=== PATIENT | female | born 1965 ===

== ENCOUNTER 2018-02-12 07:25 | Observation (INO) | payer BC ==
[2018-02-12 07:28] VITALS: BMI 27.0
[2018-02-12 08:18] LABS: BASO # 0.1 K/uL (0.0-0.2); BASO % 1.3 % (0.0-2.0); EOS # 0.1 K/uL (0.0-0.7); EOS % 0.9 % (0.0-4.0); HEMOGLOBIN 13.6 g/dL (12.0-16.0); LYMPH # 1.8 K/uL (1.0-4.3); MEAN CORPUSCULAR HGB CONC 33.7 g/dL (33.0-37.0); MEAN PLATELET VOLUME 8.6 fl (7.2-11.7); MONO # 0.6 K/uL (0.0-0.8); MONO % 6.2 % (0.0-10.0); NEUT # 7.7 K/uL (1.8-7.0); NEUT % 74.6 % (50.0-75.0); NRBC % 0.1 % (0.0-0.0); RBC 4.52 Mil/uL (3.80-5.20); RED CELL DISTRIBUTION WIDTH 13.5 % (11.5-14.5); WHITE BLOOD COUNT 10.4 K/uL (4.8-10.8)
--- NOTE | 2018-02-12 08:19 | ED PDOC ---
Syncope/Near Syncope/Dizziness Time Seen by Provider: 02/12/18 07:55 Chief Complaint (Nursing): Dizziness/Lightheaded Chief Complaint (Provider): Dizziness/Lightheaded History Per: Patient History/Exam Limitations: no limitations Onset/Duration Of Symptoms: Other (prior to arrival) Additional Complaint(s): 52 years old female presents to the ED for evaluation of syncopal episode that lasted approximately 2 minutes witnessed by family prior to arrival. Patient reports she was taking shower, fell and hit back of neck and head. She complains of right sided neck pain. She denies chest pain, weakness, paraesthesia or palpitations. No seizure signs or collection of event. PMD: non provided Past Medical History Reviewed: Historical Data, Nursing Documentation, Vital Signs Vital Signs: Last Vital Signs Temp 98.2 F 02/12/18 07:28 Pulse 49 L 02/12/18 07:28 Resp 18 02/12/18 07:28 BP 127/73 02/12/18 07:28 Pulse Ox 100 02/12/18 07:28 - Medical History PMH: No Chronic Diseases - Surgical History Surgical History: No Surg Hx - Family History Family History: States: Unknown Family Hx - Social History Current smoker - smoking cessation education provided: No Alcohol: None Drugs: Denies - Allergies Allergies/Adverse Reactions: Allergies Allergy/AdvReac Type Severity Reaction Status Date / Time No Known Allergies Allergy Verified 02/12/18 07:34 Review of Systems ROS Statement: Except As Marked, All Systems Reviewed And Found Negative Cardiovascular: Negative for: Chest Pain, Palpitations Musculoskeletal: Positive for: Neck Pain (right sided) Neurological: Positive for: Other (paraesthesia). Negative for: Weakness, Seizures Physical Exam - Reviewed Nursing Documentation Reviewed: Yes Vital Signs Reviewed: Yes - Physical Exam Appears: Positive for: Non-toxic, No Acute Distress Head Exam: Positive for: ATRAUMATIC, NORMOCEPHALIC Eye Exam: Positive for: Normal appearance, EOMI, PERRL Neck: Positive for: Supple. Negative for: Normal (Positive for right paracervical tenderness.) Cardiovascular/Chest: Positive for: Regular Rate, Rhythm. Negative for: Murmur Respiratory: Positive for: Normal Breath Sounds. Negative for: Respiratory Distress Gastrointestinal/Abdominal: Positive for: Normal Exam, Soft. Negative for: Tenderness Back: Positive for: Normal Inspection. Negative for: Other (No midline spinal tenderness or deformity) Extremity: Positive for: Normal ROM. Negative for: Tenderness, Swelling Neurologic/Psych: Positive for: Alert, Oriented (x3). Negative for: Motor/ Sensory Deficits - Laboratory Results Result Diagrams: 02/12/18 08:05 02/12/18 08:05 - ECG O2 Sat by Pulse Oximetry: 100 (RA) Pulse Ox Interpretation: Normal Medical Decision Making Medical Decision Making: Time: 800 Initial Plan: --Ct Cervical Spine W/O Contrast --Ct Head W/O Contrast --CMP --Urine dipstick --CBC --EKG [address] FINDINGS: Vertebrae: Hypertrophic changes are present involving the dens and anterior arch of C1. Discs/Spinal canal/Neural foramina: No spinal stenosis. No neural foraminal narrowing. Soft tissues: Unremarkable. Lung apices: Normal. IMPRESSION: No evidence of cervical spine fracture. Remainder of findings as described above. Dictated By: Anna Chandra MD, MD Dictated Date/Time: 02/12/18849 Signed By: Anna Chandra MD Date Signed: 849 Transcribed By: LOS Transcribe Date/Time : 02/12/18849 SHAFJ/NARENDRA [address] FINDINGS: HEMORRHAGE: No intracranial hemorrhage. BRAIN: No mass effect or edema. No atrophy or chronic microvascular ischemic changes. VENTRICLES: Unremarkable. No hydrocephalus. CALVARIUM: Unremarkable. PARANASAL SINUSES: Unremarkable as visualized. No significant inflammatory changes. MASTOID AIR CELLS: Unremarkable as visualized. No inflammatory changes. OTHER FINDINGS: None. IMPRESSION: Normal CT of the Head. Scribe Attestation: Documented by Ambika Castellanos, acting as a scribe for Saen Díaz MD. Provider Scribe Attestation: All medical record entries made by the Scribe were at my direction and personally dictated by me. I have reviewed the chart and agree that the record accurately reflects my personal performance of the history, physical exam, medical decision making, and the department course for this patient. I have also personally directed, reviewed, and agree with the discharge instructions and disposition. Disposition - Clinical Impression Clinical Impression: Syncope, Bradycardia - Patient ED Disposition Is Patient to be Admitted: Yes - Disposition Disposition Time: 09:40 Condition: FAIR Forms: [employer] [facility] (Vietnamese) - Pt Status Changed To: Hospital Disposition Of: Observation - POA Present On Arrival: None
[2018-02-12 08:40] LABS: ALB/GLOB RATIO 1.4 (1.0-2.1); ALBUMIN 4.3 g/dL (3.5-5.0); CALCIUM 9.3 mg/dL (8.4-10.2); GFR NON-AFRICAN AMERICAN > 60
--- NOTE | 2018-02-12 08:50 | CT ---
EXAM: CT Cervical Spine Without Intravenous Contrast EXAM DATE/TIME: 02/12/2018 8:01 AM CLINICAL HISTORY: 52 years old, female; Pain; Neck pain; Additional info: Trauma TECHNIQUE: Axial computed tomography images of the cervical spine without intravenous contrast. All CT scans at this facility use at least one of these dose optimization techniques: automated exposure control; mA and/or kV adjustment per patient size (includes targeted exams where dose is matched to clinical indication); or iterative reconstruction. Coronal and sagittal reformatted images were created and reviewed. COMPARISON: No relevant prior studies available. FINDINGS: Vertebrae: Hypertrophic changes are present involving the dens and anterior arch of C1. Discs/Spinal canal/Neural foramina: No spinal stenosis. No neural foraminal narrowing. Soft tissues: Unremarkable. Lung apices: Normal. IMPRESSION: No evidence of cervical spine fracture. Remainder of findings as described above.
[2018-02-12 09:08] LABS: ALT/SGPT 35 U/L (9-52); AST/SGOT 32 U/L (14-36); BLOOD UREA NITROGEN 12 mg/dl (7-17)
--- NOTE | 2018-02-12 09:23 | CT ---
Date of service: 02/12/2018 PROCEDURE: CT HEAD WITHOUT CONTRAST. HISTORY: r/o bleed COMPARISON: None available. TECHNIQUE: Axial computed tomography images were obtained through the head/brain without intravenous contrast. Radiation dose: Total exam DLP = 687.14 mGy-cm. This CT exam was performed using one or more of the following dose reduction techniques: Automated exposure control, adjustment of the mA and/or kV according to patient size, and/or use of iterative reconstruction technique. FINDINGS: HEMORRHAGE: No intracranial hemorrhage. BRAIN: No mass effect or edema. No atrophy or chronic microvascular ischemic changes. VENTRICLES: Unremarkable. No hydrocephalus. CALVARIUM: Unremarkable. PARANASAL SINUSES: Unremarkable as visualized. No significant inflammatory changes. MASTOID AIR CELLS: Unremarkable as visualized. No inflammatory changes. OTHER FINDINGS: None. IMPRESSION: Normal CT of the Head.
--- NOTE | 2018-02-12 09:45 | CARD ---
APPROVED REPORT Date of service: 02/12/2018 EKG Measurement Heart [id number] <Conclusion> Sinus bradycardia Otherwise normal ECG
--- NOTE | 2018-02-12 11:20 | CP.PCM.CON ---
History of Present Illness - History of Present Illness History of Present Illness: THE PATIENT IS A 52 YEAR OLD FEMALE WHO STATES THAT SHE IS IN GOOD HEALTH WITHOUT ANY MAJOR MEDICAL PROBLEMS AND DOESN'T TAKE ANY MEDICINES. SHE STATES THAT YESTERDAY SHE LIFTED A 5 [employer]ALL[employer] WATER CONTAINER TO PUT IN HER WATER DISPENSER AT HOME. THIS MORNING SHE WAS SHOWERING AND BEGAN HAVING SEVERE RIGHT NECK PAIN AND AFTER THE SHOWER SHE DRIED HERSELF OFF AND WAS WALKING TO HER BED TO LAY DOWN DUE TO THE NECK PAIN AND BLACKED OUT FOR A BOUT 2 MINUTES AND HIT THE FLOOR AND IT WAS WITNESSED BY HER . SHE DID NOT SUSTAIN ANY INJURY FROM THE BUT STILL HAS THE NECK PAIN. SHE WAS BROUGHT TO THE ER AND CARDIOLOGY WAS CALLED TO SEE HER BECAUSE OF A HEART RATE OF 46 BEATS PER MINUTE ON HER EKG. SHE DENIES ANY FURTHER SYNCOPE OR NEAR-SYNCOPE AND DENIES ANY CHEST PAIN, SOB, PALPITATIONS OR SEIZURE ACTIVITY. Past Patient History - Past Social History Alcohol: None Drugs: Denies - PSYCHIATRIC Hx Substance Use: No - SURGICAL HISTORY Other/Comment: liposuction 2013 - ANESTHESIA Hx Anesthesia: Yes Hx Anesthesia Reactions: No Meds Allergies/Adverse Reactions: Allergies Allergy/AdvReac Type Severity Reaction Status Date / Time No Known Allergies Allergy Verified 02/12/18 07:34 Physical Exam - Neck Exam Additional comments: NO APPARENT TRAUMA OR FRACTURES BUT PAIN UPON TURNING HER HEAD TO THE RIGHT - Respiratory Exam Respiratory Exam: Clear to Auscultation Bilateral - Cardiovascular Exam Cardiovascular Exam: Bradycardia, REGULAR RHYTHM, +S1, +S2 - Extremities Exam Extremities exam: Positive for: normal inspection - Additional Findings Additional findings: EKG SINUS BRADYCARDIA, R 46 PRODUCTION PLANNING MANAGER SINUS WITH HEART RATES UP TO 55 BPM TROPONIN NORMAL K+ 4.0 H/H Results - Vital Signs Recent Vital Signs: Last Vital Signs Temp 98.2 F 02/12/18 07:28 Pulse 49 L 02/12/18 07:28 Resp 18 02/12/18 07:28 BP 127/73 02/12/18 07:28 Pulse Ox 100 02/12/18 09:41 - Labs Result Diagrams: 02/12/18 08:05 02/12/18 08:05 Labs: Laboratory Results - last 24 hr 02/12/18 02/12/18 02/12/18 07:42 08:05 08:05 WBC 10.4 RBC 4.52 Hgb 13.6 Hct 40.3 MCV 89.0 MCH 30.0 MCHC 33.7 RDW 13.5 Plt Count 261 MPV 8.6 Neut % (Auto) 74.6 Lymph % (Auto) 17.0 L Spencer % (Auto) 6.2 Eos % (Auto) 0.9 Baso % (Auto) 1.3 Neut # (Auto) 7.7 H Lymph # (Auto) 1.8 Spencer # (Auto) 0.6 Eos # (Auto) 0.1 Baso # (Auto) 0.1 Sodium 140 Potassium 4.4 Chloride 104 Carbon Dioxide 28 Anion Gap 12 BUN 12 Creatinine 0.6 L Est GFR ( Amer) > 60 Est GFR (Non-Af Amer) > 60 POC Glucose (mg/dL) 109 Random Glucose 103 Calcium 9.3 Total Bilirubin 0.4 AST 32 ALT 35 Alkaline Phosphatase 90 Troponin I Total Protein 7.3 Albumin 4.3 Globulin 3.0 Albumin/Globulin Ratio 1.4 02/12/18 10:38 WBC RBC Hgb Hct MCV MCH MCHC RDW Plt Count MPV Neut % (Auto) Lymph % (Auto) Spencer % (Auto) Eos % (Auto) Baso % (Auto) Neut # (Auto) Lymph # (Auto) Spencer # (Auto) Eos # (Auto) Baso # (Auto) Sodium Potassium Chloride Carbon Dioxide Anion Gap BUN Creatinine Est GFR ( Amer) Est GFR (Non-Af Amer) POC Glucose (mg/dL) Random Glucose Calcium Total Bilirubin AST ALT Alkaline Phosphatase Troponin I < 0.0120 Total Protein Albumin Globulin Albumin/Globulin Ratio Assessment & Plan - Assessment and Plan (Free Text) Assessment: MOST PROBABLE VASOVAGAL SYNCOPE FROM RIGHT NECK PAIN Plan: THE PATIENT WAS ADMITTED TO ON TELEMETRY UNDER OBSERVATION ER PHYSICIAN AND NURSE SPOKEN TO THE PATIENT WILL BE GIVEN TORADOL AND IBUPROFEN EKG IN AM ECHOCARDIOGRAM MONITOR BLOOD PRESSURE AND HEART RATES CT OF HEAD AND CERVICAL SPINE ORDERED
--- NOTE | 2018-02-12 13:52 | CP.PCM.HP ---
History of Present Illness - History of Present Illness History of Present Illness: 52 y/o F with no pertinent PMHx presented to ED complaining of syncope that last 2 minutes. Pt reports the episode occurred around 6 am after taking a shower. Pt described she suddenly felt a severe neck pain and then she remembers being on the floor. Pt currently still c/o severe neck pain and posterior headache that has improved mildly. Pt reports she fainted once 15 years ago. Pt denies fever, chills nausea, vomiting, hearing disturbances, chest pain, SOB, abdominal pain, diarrhea or peripheral edema. -NKDA -PMHx: denied -PSHx: denied -FHX; NC -SHx:denies alcohol, tobacco or rec drugs. AT ER: -Normal Head CT -CT cervical spine with no evidence of fracture. -Bradicardia on monitor. HR 40s. Present on Admission - Present on Admission Any Indicators Present on Admission: No Review of Systems - Constitutional Constitutional: absent: Chills, Fatigue, Fever - EENT Nose/Mouth/Throat: absent: Sore Throat, Throat Swelling, Neck Mass - Cardiovascular Cardiovascular: Syncope. absent: Chest Pain, Palpitations - Respiratory Respiratory: absent: Cough, Dyspnea, Hemoptysis - Gastrointestinal Gastrointestinal: absent: Abdominal Pain, Hematemesis, Hematochezia, Nausea, Vomiting - Genitourinary Genitourinary: absent: Dysuria Past Patient History - Past Social History Alcohol: None Drugs: Denies - PSYCHIATRIC Hx Substance Use: No - SURGICAL HISTORY Other/Comment: liposuction 2014 - ANESTHESIA Hx Anesthesia: Yes Hx Anesthesia Reactions: No Meds Allergies/Adverse Reactions: Allergies Allergy/AdvReac Type Severity Reaction Status Date / Time No Known Allergies Allergy Verified 02/12/18 07:34 Physical Exam - Constitutional Appears: No Acute Distress - Head Exam Head Exam: NORMAL INSPECTION - Eye Exam Eye Exam: EOMI, Normal appearance - ENT Exam ENT Exam: Mucous Membranes Dry - Neck Exam Neck exam: Positive for: Full Rom. Negative for: Lymphadenopathy, Meningismus - Respiratory Exam Respiratory Exam: Clear to Auscultation Bilateral, NORMAL BREATHING PATTERN. absent: Rhonchi, Wheezes - Cardiovascular Exam Cardiovascular Exam: Bradycardia, +S1, +S2 - GI/Abdominal Exam GI & Abdominal Exam: Normal Bowel Sounds, Soft, Tenderness. absent: Distended, Firm, Guarding - Extremities Exam Extremities exam: Positive for: full ROM. Negative for: calf tenderness, pedal edema Results - Vital Signs Recent Vital Signs: Last Vital Signs Temp 98.2 F 02/12/18 12:50 Pulse 56 L 02/12/18 12:50 Resp 18 02/12/18 12:50 BP 118/66 02/12/18 12:50 Pulse Ox 99 02/12/18 12:50 - Labs Result Diagrams: 02/12/18 08:05 02/12/18 08:05 Labs: Laboratory Results - last 24 hr 02/12/18 02/12/18 02/12/18 07:42 08:05 08:05 WBC 10.4 RBC 4.52 Hgb 13.6 Hct 40.3 MCV 89.0 MCH 30.0 MCHC 33.7 RDW 13.5 Plt Count 261 MPV 8.6 Neut % (Auto) 74.6 Lymph % (Auto) 17.0 L Imperial % (Auto) 6.2 Eos % (Auto) 0.9 Baso % (Auto) 1.3 Neut # (Auto) 7.7 H Lymph # (Auto) 1.8 Imperial # (Auto) 0.6 Eos # (Auto) 0.1 Baso # (Auto) 0.1 Sodium 140 Potassium 4.4 Chloride 104 Carbon Dioxide 28 Anion Gap 12 BUN 12 Creatinine 0.6 L Est GFR ( Amer) > 60 Est GFR (Non-Af Amer) > 60 POC Glucose (mg/dL) 109 Random Glucose 103 Calcium 9.3 Total Bilirubin 0.4 AST 32 ALT 35 Alkaline Phosphatase 90 Troponin I Total Protein 7.3 Albumin 4.3 Globulin 3.0 Albumin/Globulin Ratio 1.4 02/12/18 10:38 WBC RBC Hgb Hct MCV MCH MCHC RDW Plt Count MPV Neut % (Auto) Lymph % (Auto) Imperial % (Auto) Eos % (Auto) Baso % (Auto) Neut # (Auto) Lymph # (Auto) Imperial # (Auto) Eos # (Auto) Baso # (Auto) Sodium Potassium Chloride Carbon Dioxide Anion Gap BUN Creatinine Est GFR ( Amer) Est GFR (Non-Af Amer) POC Glucose (mg/dL) Random Glucose Calcium Total Bilirubin AST ALT Alkaline Phosphatase Troponin I < 0.0120 Total Protein Albumin Globulin Albumin/Globulin Ratio Assessment & Plan (1) Bradycardia Status: Acute (2) Syncope Status: Acute (3) Neck pain Status: Acute - Assessment and Plan (Free Text) Plan: --Cardiology consult ordered, Dr Cowart --Home meds resumed --EKG for tomorrow --MRI of neck --F/U EKG and echocardiogram. --SCD for DVT prophylaxis. - Date & Time Date: 02/12/18 Time: 14:02
--- NOTE | 2018-02-12 18:04 | CARD ---
APPROVED REPORT Date of service: 02/12/2018 EXAM: Two-dimensional and M-mode echocardiogram with Doppler and color Doppler. Other Information Quality : GoodRhythm : NSR INDICATION Syncope 2D DIMENSIONS IVSd0.81 (0.7-1.1cm)LVDd4.34 (3.9-5.9cm) LVOT Diameter1.66 (1.8-2.4cm)PWd0.70 (0.7-1.1cm) IVSs1.18 (0.8-1.2cm)LVDs2.60 (2.5-4.0cm) FS (%) 40.2 %PWs1.49 (0.8-1.2cm) M-Mode DIMENSIONS Left Atrium (MM)4.14 (2.5-4.0cm)IVSd0.80 (0.7-1.1cm) Aortic Root2.60 (2.2-3.7cm)LVDd4.61 (4.0-5.6cm) Aortic Cusp Exc.1.88 (1.5-2.0cm)PWd1.03 (0.7-1.1cm) IVSs1.31 cmFS (%) 50 % LVDs2.29 (2.0-3.8cm)PWs1.78 cm Aortic Valve AoV Peak Tasmlzqd431.1cm/sAoV VTI30.8cmAO Peak GR.9mmHg LVOT Peak Ieziurqn408.1cm/sLVOT VTI23.54cmAO Mean GR.5mmHg Mitral Valve MV E Ktynantf50.1cm/sMV DECEL [id number] A Ukpzluwv43.7cm/s MV SKT73jtT/A ratio1.5MVA (PHT)3.33cm2 TDI Lateral E' Peak V15.48cm/sMedial E' Peak V11.73cm/sE/Lateral E'4.7 E/Medial E'6.1 Pulmonary Valve PV Peak Tppknnqx328.3cm/s LEFT VENTRICLE The left ventricle is normal size. There is normal left ventricular wall thickness. The left ventricular systolic function is normal. The estimated ejection fraction is 60-65% No regional wall motion abnormalities noted.. The left ventricular diastolic function is normal. No left ventricle thrombus noted on this study. There is no ventricular septal defect visualized. There is no mass noted in the left ventricle. RIGHT VENTRICLE The right ventricle is normal size. There is normal right ventricular wall thickness. The right ventricular systolic function is normal. ATRIA The left atrium size is mildly dilated The right atrium size is normal. The interatrial septum is intact with no evidence for an atrial septal defect. AORTIC VALVE The aortic valve is normal in structure. No aortic regurgitation is present. There is no aortic valvular stenosis. MITRAL VALVE The mitral valve is normal in structure. There is no mitral valve stenosis. There is no mitral valve regurgitation noted. TRICUSPID VALVE The tricuspid valve is normal in structure. There is no tricuspid valve regurgitation noted. PULMONIC VALVE The pulmonary valve is normal in structure. There is no pulmonic valvular regurgitation. GREAT VESSELS The aortic root is normal in size. The ascending aorta is normal in size. The pulmonary artery is normal. The IVC is normal in size and collapses >50% with inspiration. PERICARDIAL EFFUSION There is no pericardial effusion. <Conclusion> Dilated left atrium Otherwise normal transthoracic echocardiogram. The estimated ejection fraction is 60-65%
[2018-02-13 08:20] VITALS: PULSE 60; RESP 20
--- NOTE | 2018-02-13 08:44 | MRI ---
Date of service: 02/12/2018 PROCEDURE: MR CERVICAL SPINE WITHOUT CONTRAST HISTORY: Neck pain COMPARISON: None available. TECHNIQUE: Multiecho multiplanar sequences were performed through the cervical spine without the use of intravenous contrast. FINDINGS: Normal lordotic curvature. Craniocervical junction unremarkable. Vertebral body heights preserved. No marrow signal abnormality. Normal cervical cord. No paraspinal abnormality. C2-C3: No disc herniation, spinal canal stenosis or neural foraminal narrowing. C3-C4: No disc herniation, spinal canal stenosis or neural foraminal narrowing. C4-C5: Central disc herniation with thecal sac indentation. C5-C6: Central disc herniation with thecal sac indentation. C6-C7: Disc bulge with thecal sac indentation. C7-T1: No disc herniation, spinal canal stenosis or neural foraminal narrowing. OTHER FINDINGS: None. IMPRESSION: C4-C5 Central disc herniation with thecal sac indentation. C5-C6 Central disc herniation with thecal sac indentation. C6-C7 Disc bulge with thecal sac indentation.
--- NOTE | 2018-02-13 12:53 | CP.PCM.PN ---
Subjective - Date & Time of Evaluation Date of Evaluation: 02/13/18 Time of Evaluation: 12:30 - Subjective Subjective: NO CHEST PAIN OR SOB Objective - Vital Signs/Intake and Output Vital Signs (last 24 hours): Temp Pulse Resp BP Pulse Ox 97.9 F 60 20 121/73 100 02/13/18 08:18 02/13/18 09:00 02/13/18 08:18 02/13/18 08:18 02/13/18 08:18 - Medications Medications: Current Medications Cyclobenzaprine HCl (Flexeril) 5 mg PO HS PRN PRN Reason: Muscle spasm Ibuprofen (Motrin Tab) 400 mg PO Q6 SEE Last Admin: 02/13/18 11:27 Dose: 400 mg - Labs Labs: 02/12/18 08:05 02/12/18 08:05 - Respiratory Exam Respiratory Exam: Clear to Ausculation Bilateral - Cardiovascular Exam Cardiovascular Exam: REGULAR RHYTHM, +S1, +S2 - Extremities Exam Extremities Exam: Normal Inspection - Additional Findings Additional findings: KNOWLEDGE ARCHITECT SINUS RHYTHM UP TO 68 BEATS PER MINUTE ECHO IS GOOD MRI WITH HERNIATED DISC Assessment and Plan - Assessment and Plan (Free Text) Assessment: S/P VASOVAGAL SYNCOPE FROM CERVICAL PAIN CERVICAL DISC HERNIATION Plan: OK TO DISCHARGE FROM CARDIAC VIEWPOINT-NO FURTHER CARDIAC ALVARENGA NEEDED AT THE PRESENT TIME PATIENT DISCUSSED WITH DR CABRAL
[2018-02-13 13:02] VITALS: BP 107/69; TEMP 97.8; O2SAT 98
--- NOTE | 2018-02-14 08:07 | CARD ---
APPROVED REPORT Date of service: 02/13/2018 EKG Measurement Heart [id number] MT [id number] <Conclusion> Sinus bradycardia Nonspecific T wave abnormality Abnormal ECG
== END 2018-02-13 15:00 | disposition home or self-care (01) ==
LOC: H.ER 07:25 → H.ERHOLD 09:39 → H.TEL 12:40
PROVIDERS: ADMIT Family Medicine; ATTEND Family Medicine
DX: R55 Syncope and collapse (principal); M50.20 Other cervical disc displacement, unspecified cervical region; R00.1 Bradycardia, unspecified
CPT/HCPCS: 70450; 72125; 72141; 80053; 81025; 82948; 84484; 85025; 93005; 93306; 96374; 99285; G0378; J1885